=== PATIENT | female | born 1990 | race American Indian/Alaskan Native ===

== ENCOUNTER 2021-07-06 21:26 | Emergency (ER) | payer OTHER ==
[2021-07-06 22:12] VITALS: BP 141/69
[2021-07-06 22:55] LABS: Hematocrit 42.5 % (30.3-42.9); Hemoglobin 14.4 gm/dl (10.1-14.3); Mean Corpuscular HGB Conc 34 % (30-34); Mean Corpuscular Volume 82 fl (79-97); Platelet Count 165 K/mm3 (140-440); Red Blood Count 5.22 M/mm3 (3.65-5.03); Red Cell Distribution Width 15.5 % (13.2-15.2)
[2021-07-06 23:13] LABS: Alanine Aminotransferase 14 units/L (7-56); Albumin 3.8 g/dL (3.9-5); Blood Urea Nitrogen 8 mg/dL (7-17); Calcium 8.4 mg/dL (8.4-10.2); Hemolysis Index 11
[2021-07-06 23:14] LABS: BUN/Creatinine Ratio 11
--- NOTE | 2021-07-06 23:28 | XRay Report ---
CHEST 2 VIEWS INDICATION: shortness of breath. COMPARISON: None FINDINGS: SUPPORT DEVICES: None. HEART: Within normal limits. LUNGS/PLEURA: No acute air space or interstitial disease. No pneumothorax. ADDITIONAL FINDINGS: None. IMPRESSION: 1. No acute findings. Signer Name: Gilmer Cuevas MD Signed: 07/06/2021 11:24 PM Workstation Name: [id number]
[2021-07-06 23:29] LABS: Total Cells Counted 100
[2021-07-06 23:30] LABS: RBC Morphology Normal
[2021-07-07] MEDS ORDERED: SODIUM CHLORIDE 0.9% 1000 ML 1,000 ML IV ONE (04:42)
[2021-07-07] MEDS ORDERED: ACETAMINOPHEN 500 MG TAB PO ONE (04:42)
== END 2021-07-07 08:00 | disposition left against medical advice (07) ==
LOC: ED 21:26
DX: R51.9 Headache, unspecified (principal); R42 Dizziness and giddiness; Z53.21 Procedure and treatment not carried out due to patient leaving prior to being seen by health care provider
CPT/HCPCS: 36415; 71046; 80053; 84703; 85007; 85025; J7030